=== PATIENT | male | born 1990 | race African-American/Black ===

== ENCOUNTER 2016-10-29 15:22 | Emergency (ER) | payer OTHER ==
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
== END 2016-10-29 18:09 | disposition home or self-care (01) ==
LOC: CED 15:22
DX: S33.5XXA Sprain of ligaments of lumbar spine, initial encounter (principal); S43.402A Unspecified sprain of left shoulder joint, initial encounter; V49.40XA Driver injured in collision with unspecified motor vehicles in traffic accident, initial encounter
CPT/HCPCS: 71020; 72100; 73060; 96372; 99284; J2270; J2550